=== PATIENT | female | born 1950 | race Caucasian/White ===

== ENCOUNTER → 2016-08-29 | Outpatient (CLI) | payer MEDICARE, BC | LOC: MC.RAD 08-22 14:00 | DX: Z12.31 Encounter for screening mammogram for malignant neoplasm of breast (principal) ==

== ENCOUNTER → 2017-10-02 | Outpatient (CLI) | payer MEDICARE, BC | LOC: MC.RAD 13:54 | DX: Z12.31 Encounter for screening mammogram for malignant neoplasm of breast (principal); R92.0 Mammographic microcalcification found on diagnostic imaging of breast; N60.02 Solitary cyst of left breast; Z98.890 Other specified postprocedural states ==

== ENCOUNTER → 2018-10-05 | Outpatient (CLI) | payer MEDICARE, BC | LOC: MC.RAD 13:12 | DX: Z12.31 Encounter for screening mammogram for malignant neoplasm of breast (principal); Z98.890 Other specified postprocedural states ==

== ENCOUNTER → 2019-10-07 | Outpatient (CLI) | payer MEDICARE, BC | LOC: MC.RAD 13:00 | DX: Z12.31 Encounter for screening mammogram for malignant neoplasm of breast (principal); Z98.890 Other specified postprocedural states; Z92.3 Personal history of irradiation; R92.1 Mammographic calcification found on diagnostic imaging of breast ==

== ENCOUNTER → 2020-10-09 | Outpatient (CLI) | payer MEDICARE, BC | LOC: MC.RAD 10:30 | DX: Z12.31 Encounter for screening mammogram for malignant neoplasm of breast (principal) ==

== ENCOUNTER → 2021-10-10 | Outpatient (CLI) | payer MEDICARE, BC | LOC: MC.RAD 11:23 | DX: Z12.31 Encounter for screening mammogram for malignant neoplasm of breast (principal) ==

== ENCOUNTER → 2023-10-31 | Outpatient (CLI) | payer MEDICARE, BC ==
[2005-03-19 11:00] VITALS: TEMP 97.5
[~2023-10-31] MED LIST: ALA 100MG PO; AMBIEN 5MG TABLE5 MG PO; ASPIRIN E.C. 8181 MG PO; B-12 500 MCG PO; CYMBALTA 60MG60 MG PO; IRON 27 MG PO; TYLENOL 8 HR PO; VISION FORMULA1 EAC1 PO; ZESTORETIC 12.51 TA1 PO
== END ==
LOC: MC.RAD 11:57
DX: Z12.31 Encounter for screening mammogram for malignant neoplasm of breast (principal)